=== PATIENT | male | born 1990 | race Asian ===

== ENCOUNTER 2019-08-27 07:47 | Emergency (ER) | payer OTHER ==
[~2019-08-27] VITALS: Ht 170.2 cm; Wt 75.7 kg
[2019-08-27 07:51] VITALS: BP 139/78
--- NOTE | 2019-08-27 07:56 | NUR ---
AMB TO BED 08 STEADY GAIT
--- NOTE | 2019-08-27 08:00 | NUR ---
28Y/O MALE BIB SELF TO ED AFTER NEEDLE STICK AT 0740 WHILE SCRUBBING IN FOR AN APPENDECTOMY SURGERY. SMALL NEEDLE STICK NEAR LEFT MIDDLE FINGER. PT DENIES PAIN, DENIES NUMBNESS, TINGLING, AND HAS FULL ROM. CMS INTACT. PT A&O, NO SIGNS OF DISTRESS. CLEAR LUNG SOUNDS.
--- NOTE | 2019-08-27 08:22 | NUR ---
DR. PINEDA AT BEDSIDE.
--- NOTE | 2019-08-27 08:41 | NUR ---
PHLEB at bedside for blood draw.
--- NOTE | 2019-08-27 08:41 | NUR ---
LAB AT BEDSIDE.
[2019-08-27 09:05] VITALS: BP 139/78
--- NOTE | 2019-08-27 09:07 | NUR ---
Patient discharged with v/s stable. Written and verbal after care instructions given and explained. Patient verbalized understanding. Ambulatory with steady gait. All questions addressed prior to discharge. Advised to follow up with PMD. PT IN ROOM 8, WAITING FOR [employer] TO BRING FOLLOW UP INSTRUCTIONS FOR [employer].
[2019-08-28 08:10] LABS: HEPATITIS B SURFACE ANTIGEN Negative (Negative)
== END 2019-08-27 09:07 | disposition home or self-care (01) ==
LOC: MED 07:47
DX: S60.512A Abrasion of left hand, initial encounter (principal); W46.0XXA Contact with hypodermic needle, initial encounter; Y93.89 Activity, other specified; Y92.89 Other specified places as the place of occurrence of the external cause; Y99.8 Other external cause status
CPT/HCPCS: 36415; 82948; 86592; 86702; 86803; 87340; 99283